=== PATIENT | female | born 1970 | race Caucasian/White ===

== ENCOUNTER 2018-01-17 12:57 | Emergency (ER) | payer BC ==
[2018-01-17 14:02] LABS: #Eosinphils 0.1 thou/uL (0.0-0.7); #Lymphocytes 2.5 thou/uL (1.20-3.40); #Monocytes 0.9 thou/uL (0.11-0.59); #Neutrophils 9.9 thou/uL (1.40-6.50); %Basophils 0.2 % (0.0-1.0); %Eosinophils 0.6 % (0.0-10.0); %Monocytes 6.4 % (0.0-10.0); %Neutrophils 73.7 % (42.0-75.0); Hemoglobin 13.7 g/dL (12.0-16.0); Mean Corpuscular HGB CONC 34.2 g/dL (32.0-36.0); Mean Corpuscular Hemoglobin 30.6 pg (27.0-31.0); Mean Corpuscular Volume 89.5 fl (81.0-99.0); Mean Platelet Volume 7.3 fL (7.4-10.4); Platelet Count 381 thou/uL (130-400); RBC Distribution Width 11.9 % (11.5-14.5); Red Blood Cell (RBC) Count 4.49 mill/uL (4.20-5.40); White Blood Cell (WBC) Count 13.4 thou/uL (4.8-10.8)
[2018-01-17] MEDS ORDERED: Ketorolac Tromethamine 30 MG/ML VIAL ONE (14:08)
[2018-01-17 14:22] LABS: ALT (SGPT) 16 U/L (8-55); AST (SGOT) 17 U/L (5-34); Albumin 4.3 g/dL (3.5-5.0); Alkaline Phosphatase 78 U/L (40-150); Anion Gap 16 mmol/L (10-20); BUN (Urea Nitrogen) 9 mg/dL (7.0-18.7); Bilirubin, Total 0.5 mg/dL (0.2-1.2); Calc. Creatinine Clearance 0 mL/min (70-130); Calcium 9.9 mg/dL (7.8-10.44); Carbon Dioxide 22 mmol/L (22-29); Chloride 103 mmol/L (98-107); Estimated GFR-MDRD 87; Glucose 128 mg/dL (70-105); Potassium 3.5 mmol/L (3.5-5.1); Protein, Total 7.3 g/dL (6.0-8.3); Sodium 137 mmol/L (136-145)
[2018-01-17] MEDS ORDERED: HYDROmorphone 0.5 MG/0.5 ML SYRINGE ONE (15:30)
--- NOTE | 2018-01-17 15:35 | CT ---
CT ABDOMEN AND PELVIS NONCONTRAST: 01/17/18 HISTORY: Left flank pain. FINDINGS: Each renal collecting system, ureter, and urinary bladder are decompressed without stone apparent. Lack of contrast limits evaluation for other abnormalities. Gallbladder is surgically absent. Small l ow density lesions arise from each renal cortex and are too small to characterize. Probable cysts. Lo bular septated fluid density mass arising from the left adnexa measures up to 6.4 x 6.2 cm greatest d iameters. No significant free fluid. IMPRESSION: 1. No CT evidence of urinary tract obstruction or calcification. 2. Large left ovarian cystic mass. POS: [facility]
--- NOTE | 2018-01-17 16:10 | ULT ---
PELVIC SONOGRAM TRANSABDOMINAL IMAGING WITH DUPLEX EVALUATION 01/17/18 HISTORY: Pelvic pain. FINDINGS: Urinary bladder is decompressed. Uterus has a heterogeneous echotexture and is 12.9 cm. Endometrium i s 0.6 cm. No free fluid. Right ovary is not visualized. No solid or cystic adnexal masses. Left ovary is 6.6 cm length and demonstrates good color and spectral doppler flow. Multiple cysts gayathri sing from the left adnexa measure up to 3.7 x 3.7 cm greatest diameters. They measured larger as a si ngle septated cyst on recent CT. IMPRESSION: Left ovarian cysts. No significant abnormalities otherwise demonstrated. No evidence of ovarian torsi on. POS: [facility]
[2018-01-17 16:44] LABS: Bilirubin Negative (Negative); Blood, Urine Negative (Negative); Clarity CLEAR (Clear); Glucose, Urine (Dipstick) 100 mg/dL (Negative); Leukocyte Negative (Negative); Nitrite Negative (Negative); Protein, Urine (Dipstick) Negative (Neg-Trace); Specific Gravity, Urine 1.018 (1.002-1.036); Urobilinogen 0.2 mg/dL (0.2-1.0); pH, Urine 6.5 (5.0-9.0)
== END 2018-01-17 17:30 | disposition home or self-care (01) ==
LOC: ERS 12:57
DX: N83.202 Unspecified ovarian cyst, left side (principal)
CPT/HCPCS: 36415; 74176; 76856; 80053; 81003; 83605; 85025; 93005; 96374; 96375; J1170; J1885; J2270

== ENCOUNTER 2023-05-29 08:10 | Outpatient (CLI) | payer BC | END 2023-05-29 08:11 | disposition home or self-care (01) | LOC: BICMAMMO 08:10 | PROVIDERS: ATTEND Physician Assistant | DX: Z12.31 Encounter for screening mammogram for malignant neoplasm of breast (principal) | CPT/HCPCS: 77063; 77067 ==

== ENCOUNTER 2024-06-02 07:55 | Outpatient (CLI) | payer BC | END 2024-06-02 07:56 | disposition home or self-care (01) | LOC: BICMAMMO 07:55 | PROVIDERS: ATTEND Family Medicine | DX: Z12.31 Encounter for screening mammogram for malignant neoplasm of breast (principal); Z85.820 Personal history of malignant melanoma of skin | CPT/HCPCS: 77063; 77067 ==

== ENCOUNTER 2025-07-14 15:08 | Outpatient (CLI) | payer OTHER | END 2025-07-14 15:09 | disposition home or self-care (01) | LOC: BICRAD 15:08 → BICCT 15:09 | PROVIDERS: ATTEND Nurse Practitioner Family | DX: Z13.6 Encounter for screening for cardiovascular disorders (principal); Z82.49 Family history of ischemic heart disease and other diseases of the circulatory system | CPT/HCPCS: 75571 ==